=== PATIENT | female | born 1980 | race Caucasian/White ===

== ENCOUNTER 2018-02-21 16:03 | Emergency (ER) | payer OTHER ==
[~2018-02-21] VITALS: Ht 165.1 cm; Wt 89.8 kg
[~2018-02-21 16:03] MED LIST: ? ANTIBIOTIC; CALCIUM OYSTER500 MG PO; CIPRO500 MG PO; FLEXERIL PO; FLUZONE 2045 MCG/011; HYDROCODON-ACE1 EAC7 PO; HYDROCODONE-AP1 EAC6 PO; LO-DOSE ASPIRIN81 M1 PO; NOHOMEMEDICATIONS; NORCO 5-325 TA1 EACH PO; ONDANSETRON HCL4 M2 PO; PERCOCET 5-3251 EACH PO; PHENERGAN 25 MG25 M1 PO; PNEUMOVAX25 MCG/0.5; PRENATAL; VITAMIN B-6250 MG; VITAMIN D1000 UNI1 PO; VITCB500GO PO; [UNRECOGNIZED DRUG - CODE]; [UNRECOGNIZED DRUG - REMARK]
[2018-02-21] MEDS ORDERED: CIPRO500 MG PO (16:17)
[2018-02-21 16:26] LABS: URINE BILIRUBIN NEGATIVE (Negative); URINE BLOOD NEGATIVE (Negative); URINE CLARITY CLEAR; URINE COLOR YELLOW; URINE GLUCOSE-RANDOM NEGATIVE (Negative); URINE KETONES NEGATIVE (Negative); URINE LEUKOCYTES-REFLEX 1+ (Negative); URINE NITRITE-REFLEX NEGATIVE (Negative); URINE PROTEIN NEGATIVE (Negative); URINE UROBILINOGEN 0.2 E.U./dl (0.2-1.0)
[2018-02-21 16:33] LABS: SQUAMOUS >10 Many /LPF (0-3)
[2018-02-21 16:34] LABS: BACTERIA-REFLEX None Seen /HPF (None Seen); CASTS None Seen /LPF (None Seen); CRYSTALS None Seen /LPF (None Seen); URINE RBC None Seen /HPF (0-2); URINE WBC-REFLEX 0-5 Rare /HPF (0-5)
[2018-02-21 17:09] LABS: ABSOLUTE EOSINOPHILS 0.1 thou/uL (0.0-0.7); ABSOLUTE LYMPHOCYTES 2.1 thou/uL (0.8-5.3); ABSOLUTE MONOCYTES 0.4 thou/uL (0.0-1.2); BASOPHILS 0.8 %; EOSINOPHILS 2.6 %; HEMATOCRIT 35.7 % (37.0-47.0); HEMOGLOBIN 11.7 gm/dL (12.0-15.0); LYMPHOCYTES 45.7 %; MCH 26.5 pg (26.0-34.0); MCHC 32.7 g/dL (28.0-37.0); MCV 81.1 fL (80.0-100.0); MONOCYTES 8.2 %; MPV 7.8 fl. (7.2-11.1); NUCLEATED RBCS 0 /100WBC; PLATELET COUNT* 229 thou/uL (150-400); POLYS 42.7 %; RDW-CV 14.2 % (10.5-14.5); WBC 4.7 thou/uL (4.0-11.0)
[2018-02-21 17:17] LABS: CALCIUM 8.7 mg/dL (8.5-10.1); CREATININE 1.1 mg/dL (0.6-1.3); POTASSIUM 3.5 mmol/L (3.5-5.1)
[2018-02-21 17:22] LABS: ALBUMIN 3.6 g/dL (3.4-5.0); TOTAL BILIRUBIN 0.4 mg/dL (<0.1-1.0); TOTAL PROTEIN 6.8 g/dL (6.4-8.2)
[2018-02-21] MEDS ORDERED: TRAMADOL 50 MG50 MG PO (18:10)
[2018-02-21 18:28] VITALS: BP 148/78
== END 2018-02-21 18:28 | disposition home or self-care (01) ==
LOC: M.ERS 16:03
PROVIDERS: Nurse Practitioner Family
DX: R10.9 Unspecified abdominal pain (principal); Q61.3 Polycystic kidney, unspecified; Z90.49 Acquired absence of other specified parts of digestive tract; Z88.8 Allergy status to other drugs, medicaments and biological substances

== ENCOUNTER 2018-04-08 08:35 | Emergency (ER) | payer OTHER ==
[~2018-04-08] VITALS: Ht 165.1 cm; Wt 88.0 kg
[~2018-04-08 08:35] MED LIST changes: +TRAMADOL 50 MG50 MG PO
[2018-04-08 08:44] VITALS: BP 135/69
[2018-04-08] MEDS ORDERED: ALKA-SELTZER P1 EAC6 PO (08:47)
[2018-04-08] MEDS ORDERED: AMOXICILLIN 50500 MG PO (09:02)
== END 2018-04-08 09:09 | disposition home or self-care (01) ==
LOC: M.ERS 08:35
DX: J02.9 Acute pharyngitis, unspecified (principal); Z90.49 Acquired absence of other specified parts of digestive tract

== ENCOUNTER 2018-05-22 09:22 | Emergency (ER) | payer OTHER ==
[~2018-05-22] VITALS: Ht 165.1 cm; Wt 86.2 kg
[~2018-05-22 09:22] MED LIST changes: +ALKA-SELTZER P1 EAC6 PO; +AMOXICILLIN 50500 MG PO
[2018-05-22 09:25] VITALS: BP 153/86
[2018-05-22 09:35] LABS: URINE BILIRUBIN NEGATIVE (Negative); URINE BLOOD NEGATIVE (Negative); URINE CLARITY CLEAR; URINE COLOR YELLOW; URINE GLUCOSE-RANDOM NEGATIVE (Negative); URINE KETONES NEGATIVE (Negative); URINE LEUKOCYTES-REFLEX 2+ (Negative); URINE NITRITE-REFLEX NEGATIVE (Negative); URINE PROTEIN NEGATIVE (Negative); URINE SPECIFIC GRAVITY 1.025 (1.005-1.030); URINE UROBILINOGEN 0.2 E.U./dl (0.2-1.0)
[2018-05-22 09:45] LABS: SQUAMOUS 0-3 Few /LPF (0-3)
[2018-05-22 09:46] LABS: BACTERIA-REFLEX 1-9 Few /HPF (None Seen); CASTS None Seen /LPF (None Seen); CRYSTALS None Seen /LPF (None Seen); URINE RBC 0-2 Rare /HPF (0-2); URINE WBC-REFLEX 6-15 Few /HPF (0-5)
[2018-05-22] MEDS ORDERED: DIFLUCAN150 MG PO (09:55)
[2018-05-22] MEDS ORDERED: CIPROFLOXACIN500 M1 PO (09:55)
== END 2018-05-22 09:57 | disposition home or self-care (01) ==
LOC: M.ERS 09:22
PROVIDERS: Family Medicine
DX: N39.0 Urinary tract infection, site not specified (principal); Z90.49 Acquired absence of other specified parts of digestive tract